=== PATIENT | female | born 1970 | race Caucasian/White ===

== ENCOUNTER 2018-07-02 15:59 | Emergency (ER) | payer OTHER ==
[~2018-07-02] VITALS: Ht 165.1 cm; Wt 80.7 kg
[2018-07-02 16:28] VITALS: Ht 165.1 cm; Wt 80.7 kg
[2018-07-02 16:53] LABS: BASOPHIL % 0.5 % (0-2); RED CELL DISTRIBUTION WIDTH 14.5 % (11.5-14.5)
[2018-07-02 17:01] LABS: CALCIUM 9.2 mg/dL (8.5-10.1); CARBON DIOXIDE 22.1 mmol/L (21-32); CHLORIDE SERUM 100 mmol/L (98-107); CREATININE SERUM 0.6 mg/dL (0.6-1.0); GFR1 > 60 mL/min; GLUCOSE SERUM 113 mg/dL (74-106); PLATELET COUNT 416 x10^3mcL (130-400); POTASSIUM SERUM 3.5 mmol/L (3.5-5.1); SODIUM SERUM 137 mmol/L (136-145)
[2018-07-02 17:13] LABS: ALBUMIN 3.4 g/dL (3.4-5.0); ALKALINE PHOSPHATASE 77 U/L (46-116); ALT/SGPT 49 U/L (14-59); AST/SGOT 32 U/L (15-37); BILIRUBIN TOTAL 0.8 mg/dL (0.20-1.00); LIPASE 89 IU/L (73-393); TOTAL PROTEIN, SERUM 8.1 g/dL (6.4-8.2)
[2018-07-02 19:06] VITALS: BP 137/74
== END 2018-07-02 19:06 | disposition home or self-care (01) ==
LOC: ED 15:59
PROVIDERS: Emergency Medicine
DX: K29.70 Gastritis, unspecified, without bleeding (principal)
CPT/HCPCS: J2270; J2405; Q9967